=== PATIENT | female | born 1990 | race Caucasian/White ===

== ENCOUNTER 2018-03-03 14:00 | Day surgery (SDC) | payer SELFPAY ==
[2018-03-03] VITALS (9 sets, daily range): BP systolic 113–149; BP diastolic 68–91; PULSE 63–104; RESP 14–18; TEMP 36.6–37.1; O2SAT 98–100; BMI 25.5; BMI 25.6
--- NOTE | 2018-03-03 14:41 | CT_ITS ---
STUDY: CT ABDOMEN AND PELVIS WITHOUT CONTRAST REASON FOR EXAM: Female, 27 years old. Right lower quadrant pain. IUD. RADIATION DOSAGE (If Supplied By Facility): CTDIvol = ( 11.80 ) mGy, DLP = ( 579.02 ) mGycm TECHNIQUE: Transaxial images were obtained from the dome of the diaphragm to the symphysis pubis without oral contrast, and without intravenous contrast. Sagittal and coronal images were reconstructed. Individualized dose optimization techniques were used for this CT. COMPARISON: None. FINDINGS: The visualized lung bases are unremarkable. The visualized portions of the heart are within normal limits. Normal liver. Normal gallbladder and extrahepatic biliary system. Normal spleen. Normal pancreas. Normal bilateral adrenal glands. Normal right kidney. Normal left kidney. There is a small hiatal hernia. Normal small intestine. Moderate amount of fecal material is seen in the colon. There is a tubular, thick-walled appendix (>7mm), consistent with acute appendicitis. Dense material is seen within the appendix suggestive of appendicolith. Normal abdominal aorta. Normal inferior vena cava. Normal retroperitoneum. Normal urinary bladder. IUD is seen within the endometrium. Normal abdominal wall. Normal osseous structures. CT/Abdomen/Pelvis without Cont IMPRESSION: Findings suggestive of a noncomplicated acute appendicitis with appendicoliths within the appendix. Electronically Signed: Malachi Tanner MD at 15:47 EST Tel [phone], Service support ,
[2018-03-03 15:15] LABS: Absolute Lymphocyte Count 1.35 X10^3/ul (0.83-4.51); Absolute Neutrophil Count 2.1 X10^3/uL (2.0-7.7); Basophil# 0.01 X10^3/uL; Basophil% 0.3 % (0-1); Eosinophil# 0.03 X10^3/uL; Eosinophils% 0.8 % (0-5); Hematocrit 39.9 % (37-47); Hemoglobin 13.1 g/dl (12.0-15.0); Lymphocyte # 1.35 X10^3/ul (4.0); Lymphocyte % 35.9 % (19-41); Mean Corp Hgb Conc 32.8 g/gl (32-36); Mean Corpuscular Hgb 28.1 pg (27.0-32.0); Mean Corpuscular Volume 85.6 fL (81-99); Mean Platelet Vol. 10.8 fl (6.2-12.0); Monocyte# 0.24 X10^3/uL; Monocyte% 6.4 % (0-10); Neutrophil # 2.12 X10^3/uL (2.7-7.7); Neutrophil % 56.3 % (47-70); Platelet Count 123 K/mm3 (150-450); RBC Distribution Width CV 13.2 % (11.6-14.6); RBC Distribution Width SD 40.6 fl (35.1-43.9); Red Blood Count 4.66 M/mm3 (4.2-5.4); White Blood Count 3.8 K/mm3 (4.4-11.0)
[2018-03-03 15:16] LABS: POSITIVE COUNT NO; POSITIVE DIFFERENTIAL NO; POSITIVE MORPHOLOGY NO
[2018-03-03 15:26] LABS: Bacteria 0 SEEN /hpf (None Seen); Mucous, Urine 0 SEEN /hpf (<or=2+); Red Blood Cells-Urine 0 SEEN /hpf (0-5)
[2018-03-03 15:30] LABS: Color, Urine Yellow (Yellow); Glucose, Dipstick Normal (Normal); Ketone-Dipstick Negative (Negative); Leukocyte Esterase-Dipstick 25 /ul (Negative); Nitrite-Dipstick Negative (Negative); Occult Blood-Urine Negative /ul (Negative); Protein-Dipstick Negative (Negative); Specific Gravity, Urine 1.015 (1.002-1.030); Urine Bilirubin Dipstick Negative (Negative); Urine Clarity Clear (Clear); Urine Urobilinogen 1 mg/dl (Normal); Urine pH 6.5 (5.0 - 8.0)
[2018-03-03 15:35] LABS: AST(SGOT) 13 U/L (15-37); Alanine Aminotransfer ALT/SGPT 18 U/L (13-56); Alkaline Phosphatase 52 U/L (45-117); Anion Gap 5 (5-15); BUN 9 mg/dL (7-18); BUN/Creat Ratio 15.1 RATIO (10-20); Calcium,Total 8.9 mg/dL (8.5-10.1); Chloride 105 mmol/L (98-107); EST Glomerular Filtration Rate 126 mL/min (>60); Est Glom Filt Rate - Afr Amer 153 mL/min (>60); Estimated Creatinine Clearance 134.54 ml/min; Glucose 98 mg/dL (74-106); Lipase 86 U/L (73-393); Sodium Level 137 mmol/L (136-145)
[2018-03-03 15:36] LABS: Internal QC Validated? YES +Cl - CLEAR BKGD; Pregnancy, Urine Negative Negative
[2018-03-03 15:43] LABS: Squamous Epithelial Cells - UA 0-5 SEEN /hpf (5-10); White Blood Cells 0-5 SEEN /hpf (0-5)
--- NOTE | 2018-03-03 16:11 | ED.DCSUM_ITS ---
- ER Visit Summary Date of Service: 03/03/18 Chief Complaint: Abdominal pain History of Present Illness: The patient is a 27 F with right lower quadrant abdominal pain that has started about 3 days ago and is now radiating to her right flank. No other GI symptoms. No symptoms. She has had some vaginal spotting but no discharge. No fevers. Physical Examination: Afebrile and vital signs unremarkable. Alert and oriented. No acute distress. Heart regular. Lungs clear. Abdomen tender in the right lower quadrant. No guarding or rebound. Skin appears normal. Test Results: White count 3.8 and platelets 123. CMP and lipase unremarkable. test negative. Urinalysis unremarkable. CT showed acute appendicitis based on the thickened appendix as well as an appendicolith. Emergency Department Course and Treatment: Patient declined pain meds. She was treated with Zosyn. Workup showed appendicitis. Dr. Sexton was on-call and contacted and will evaluate. Patient has been n.p.o. since 1:30 PM today. Started on Zosyn. Treatment Plan: As above Disposition: Admission to the OR Impression: 1. Acute appendicitis This note was generated with [employer] dictation software. It may contain incorrect words, spelling, and punctuation that were not noted in review of the chart prior to signing ED Disposition - Plan for ED Patient: Chief Complaint: Abd Pain Referrals: Care Physician,No Primary [Primary Care Provider] -
--- NOTE | 2018-03-03 16:26 | ED.RN ---
Called nursing report to SHARMILA Su in [facility]. Denies questions. States ready for patient and that OR/AC will prep patient and give antibiotic. Pharmacy called and told to send antibiotic to OR when ready. Pt transferred to AC with ED RN.
--- NOTE | 2018-03-03 17:33 | CON.PCM_ITS ---
Problem List (1) Acute appendicitis Status: Acute Reason for Consult Date of Consultation: 03/03/18 History of Present Illness: The patient is a 27 F with right lower quadrant abdominal pain that has started about 3 days ago and is now radiating to her right flank. No other GI symptoms. No symptoms. She has had some vaginal spotting but no discharge. No fevers CT scan was done. It showed appendicolith and findings suggestive of acute appendicitis. Past Medical History Allergies No Known Allergies Allergy (Verified 03/03/18 14:05) Home Medications: Ambulatory Orders Medication Instructions Recorded Buprenorphine HCl/Naloxone HCl 0.25 tab PO DAILY 03/03/18 [Buprenorphin-Naloxon 8-2 mg Sl] Buprenorphine HCl/Naloxone HCl 0.5 tab PO DAILY 03/03/18 [Buprenorphin-Naloxon 8-2 mg Sl] Surgical History: no surgical history Smoking Status: Never smoker - *Family History Maternal History Items: - - all 4 of grandparents have diabetes. Mother had polyps Review of Systems Constitutional: Reports: Chills. Denies: Fever HEENT: Denies: Dysphasia, Ear Pain, Eye Pain, Head Aches, Hearing Changes, Sore Throat Cardiovascular: Denies: Chest Pain, Chest Pressure, Chest Tightness, Palpitations Respiratory: Denies: Cough, Hemoptysis, Shortness of breath at rest, Shortness of breath upon exertion, Wheezing Gastrointestinal: Reports: Abdominal Pain Musculoskeletal: Reports: Back Pain Patient Problems: Active and Suspected Problems Acute appendicitis (Acute) - Physical Exam General: Alert, Oriented x3 Lungs: Clear to auscultation Cardiovascular: Regular rate, Regular Rhythm, No murmurs Abdomen: Soft, Tender - No regard no peritoneal signs Vital Signs Temp Pulse Resp BP Pulse Ox 98.4 F 97 14 139/86 H 99 03/03/18 15:08 03/03/18 16:29 03/03/18 16:29 03/03/18 16:29 03/03/18 16:29 Oxygen Delivery Method Room Air Weight: 163 lb 5.8 oz Body Mass Index (BMI) 25.5 Laboratory Tests Past 24 Hrs 03/03/18 03/03/18 03/03/18 14:20 14:20 15:00 WBC 3.8 L RBC 4.66 Hgb 13.1 Hct 39.9 MCV 85.6 MCH 28.1 MCHC 32.8 RDW 13.2 RDW Differential 40.6 Plt Count 123 L MPV 10.8 Immature Gran % (Auto) 0.300 Neut % (Auto) 56.3 Lymph % (Auto) 35.9 [place] % (Auto) 6.4 Eos % (Auto) 0.8 Baso % (Auto) 0.3 Absolute Neuts (auto) 2.1 Absolute Lymphs (auto) 1.35 Total Counted Not Reportable Sodium Potassium Chloride Carbon Dioxide Anion Gap BUN Creatinine Estim Creat Clear Calc Est GFR (MDRD) Af Amer Est GFR (MDRD) Non-Af BUN/Creatinine Ratio Glucose Calcium Total Bilirubin AST ALT Alkaline Phosphatase Total Protein Albumin Globulin Albumin/Globulin Ratio Lipase Urine Color Yellow Urine Clarity Clear Urine pH 6.5 Ur Specific [place] 1.015 Urine Protein Negative Urine Glucose (UA) Normal Urine Ketones Negative Urine Occult Blood Negative Urine Nitrite Negative Urine Bilirubin Negative Urine Urobilinogen 1 H Ur Leukocyte Esterase 25 H Urine RBC 0 SEEN Urine WBC 0-5 SEEN Ur Squamous Epith Cells 0-5 SEEN Urine Bacteria 0 SEEN Urine Mucus 0 SEEN Urine Test Negative 03/03/18 15:00 WBC RBC Hgb Hct MCV MCH MCHC RDW RDW Differential Plt Count MPV Immature Gran % (Auto) Neut % (Auto) Lymph % (Auto) [place] % (Auto) Eos % (Auto) Baso % (Auto) Absolute Neuts (auto) Absolute Lymphs (auto) Total Counted Sodium 137 Potassium 4.0 Chloride 105 Carbon Dioxide 27.0 Anion Gap 5 BUN 9 Creatinine 0.60 Estim Creat Clear Calc 134.54 Est GFR (MDRD) Af Amer 153 Est GFR (MDRD) Non-Af 126 BUN/Creatinine Ratio 15.1 Glucose 98 Calcium 8.9 Total Bilirubin 0.20 AST 13 L ALT 18 Alkaline Phosphatase 52 Total Protein 8.0 Albumin 4.0 Globulin 4.0 Albumin/Globulin Ratio 1.0 Lipase 86 Urine Color Urine Clarity Urine pH Ur Specific [place] Urine Protein Urine Glucose (UA) Urine Ketones Urine Occult Blood Urine Nitrite Urine Bilirubin Urine Urobilinogen Ur Leukocyte Esterase Urine RBC Urine WBC Ur Squamous Epith Cells Urine Bacteria Urine Mucus Urine Test Assessment/Plan All Active Problems Acute appendicitis (Acute) Acute hepatitis (Acute) Elevated transaminase level (Acute) My plan is to perform a laparoscopic appendectomy on the patient risk benefits have been reviewed with the patient all questions asked by the patient and she agrees to proceed. Risks include bleeding infection delayed abscesses possible injury to surrounding structures blood clots heart attacks pneumonias strokes up to and including .
[2018-03-03] MEDS: Bupivacaine Mpf 0.5% 30 ML VIAL (18:28)
--- NOTE | 2018-03-03 18:45 | APP_PTH ---
PATIENT: ANDER TUBBS LOC: [facility] [place] U#:[id number] AGE/SX: 27/F ROOM: RE03/03/[address]: Dr. Jeremiah Sexton MD : [id number] BED: DIS: 03/04/2018 SPEC #: [id number] RECD: 03/04/18 07:03 STATUS: CARLA RESharif #: [id number] JOS: 03/03/18 18:[address]: Jeremiah Sexton DEPT: SURGICAL PATHOLOGY RECD BY: Brennon Fenton ENTERED: 03/04/18 08:41 SP TYPE: APPENDIX OT DR: No Primary Care Phys Tissues: Appendix, NOS Procedures: Surgery Specimen Level III HEADER OPERATION: Laparoscopic appendectomy PRE-OP DIAGNOSIS: Acute appendicitis TISSUE SUBMITTED: Appendix MICROSCOPIC DIAGNOSIS Appendix, appendectomy: Fecal impaction and early acute appendicitis. AM:nena 03/05/18 MICROSCOPIC DESCRIPTION Slides are reviewed. GROSS DESCRIPTION Received is one container labeled with the patient's name and designated appendix. The specimen consists of a vermiform appendix measuring 11.5 cm in length and 1 cm in greatest diameter. No gross perforations are evident. Serial sections reveal a patent lumen with dense fecal material. Care Administrative Tech sections are submitted in three cassettes. / AM:nena 03/04/18 TC:2 CPT: [id number]
--- NOTE | 2018-03-03 18:51 | PCM.OPRPT ---
Problem List (1) Acute appendicitis Status: Acute Qualifiers: Acute appendicitis type: with localized peritonitis Appendicitis gangrene presence: without gangrene Appendicitis perforation presence: without perforation Appendicitis abscess presence: without abscess Qualified Code(s): K35.30 - Acute appendicitis with localized peritonitis, without perforation or gangrene Report of Operation Date of Procedure: 03/03/18 Pre-Operative Diagnosis: Acute appendicitis Post-Operative Diagnosis: Same Surgery/Procedure Performed:: Laparoscopic appendectomy Type of Anesthesia:: General Anesthesiologist: Kiana Monroe Estimated Blood Loss (mL): , 25 cc Fluids Replaced: 550 cc lr Description of Procedure: Patient was brought into the operating room. Placed in the supine position. Under excellent general trach intubation the abdomen was sterilely prepped draped in usual fashion. Local was injected in for umbilically. Dissection was carried down to the fascia. The fascia was grasped with a [place]. Varies needle was placed inside the abdomen. Abdomen was insufflated to 15 torr. A 10/12 trocar was placed without difficulty. A suprapubic #5 trocar was placed left lower quadrant #5 trocar was placed both of these under direct visualization and no injury to underlying structures patient was placed in the headdown and rotated to the left dissected the appendix identified acute appendicitis took the mesoappendix down with the Enseal had excellent hemostasis transected the appendix with a 45 linear cutter placed in a specimen bag delivered through the umbilical port. Reinflated the abdomen inspected my base good hemostasis was noted looked into the pelvis saw a right ovarian ruptured cyst and a left ovary. No signs of pus in the pelvis. Inspected the right upper quadrant good hemostasis and no signs of any bleeding or pus. Remove the trochars under direct visualization. Close the fascia the umbilical port with [id number] stitch of 0 Vicryl skin incisions were closed with septicum stitches of 4-0 Monocryl Steri-Strips are applied sterile dressings were applied and the patient tolerated the procedure well. - Admit VTE Documentation VTE Present on Admission: No VTE Mechan Device Prophylaxis: SCD's VTE Pharm Prophylaxis ordered?: No Reason prophylaxis not ordered:: Treatment Not Indicated
[2018-03-03] MEDS: Lactated Ringers 1,000 ML 75 ML IV (22:22)
[2018-03-03] MEDS: Ketorolac 15 MG/ML Vial IV (22:22)
[2018-03-03] MEDS: BUPRENORPHINE HCL/NALOXONE HCL 1 EACH TAB.SUBL 0.25 EACH SL (22:51)
[2018-03-04 00:02] VITALS: BP 101/61; PULSE 66; RESP 16; TEMP 36.8; O2SAT 98
[2018-03-04 04:07] VITALS: BP 103/63; PULSE 73; RESP 18; TEMP 36.8; O2SAT 99
[2018-03-04] MEDS: Ketorolac 15 MG/ML Vial IV (05:15)
[2018-03-04] MEDS: BUPRENORPHINE HCL/NALOXONE HCL 1 EACH TAB.SUBL 0.5 EACH SL (05:36)
--- NOTE | 2018-03-04 07:23 | DCINST_ITS ---
Discharge Diet: Light diet - advance as tolerated Discharge Activity: May Not Drive - for 5 days or while taking narcotic pain meds. May shower in (days): 1 Call your doctor if your incision/area has: Continuous Slow Oozing, Sudden Increased Bleeding, Increased Pain/ Swelling, Increased Redness, Foul Smelling Discharge Call your doctor if you observe: Fever of 101 or Higher Suture Line Care: Avoid Pulling/Pushing, Avoid Pinching/Bending Remove Dressing in (days):: 2 - Leave steri-strips intact for 1 week Cleanse incision/area with: Soap & Water Additional Dressing/Incision Instructions:: Keep dressing clean and dry. Change or remove dressing in 2 days. Leave steri strips for 1 week. May protect with a gauze bandaid. Medications to take at Discharge Buprenorphine HCl/Naloxone HCl [Buprenorphin-Naloxon 8-2 mg Sl] 0.25 tab PO 1600 03/03/18 Buprenorphine HCl/Naloxone HCl [Buprenorphin-Naloxon 8-2 mg Sl] 0.5 tab PO DAILY 03/03/18 Allergies/Adverse Reactions: Allergies No Known Allergies Allergy (Verified 03/03/18 14:05) Primary Care Physician: Care Physician,No Primary [Primary Care Provider] - Test Results: Test results from this visit will be discussed in further detail at your follow- up appointment, if applicable. Please Follow Up With: Annabelle Barrientos PA-C - [phone] When: 10 days
--- NOTE | 2018-03-04 07:23 | PCM.PN.SRG ---
Patient Problems: Active and Suspected Problems Acute appendicitis (Acute) Subjective: Patient evaluated resting comfortably in bed. She notes minimal amount of incisional discomfort. She denies nausea, vomiting, fever. She is urinating well. She is tolerating a diet. - Physical Exam General: Alert, Oriented x3, Cooperative Abdomen: Soft, Hypoactive Bowel Sounds, Distended - slightly, Tender - mild generalized, - - Incisions c/d/i. No erythema or infection noted Vital Signs Temp Pulse Resp BP Pulse Ox 98.2 F 73 18 103/63 99 03/04/18 04:07 03/04/18 04:07 03/04/18 04:07 03/04/18 04:07 03/04/18 04:07 Oxygen Delivery Method Room Air Weight: 163 lb 5.8 oz Body Mass Index (BMI) 25.5 Intake and Output for Last 24 Hours 03/02/18 03/03/18 03/04/18 23:59 23:59 23:59 Intake Total 800 / 800 1206 / 1206 Output Total 600 / 600 Balance 800 / 800 606 / 606 Laboratory Tests Past 24 Hrs 03/03/18 03/03/18 03/03/18 14:20 14:20 15:00 WBC 3.8 L RBC 4.66 Hgb 13.1 Hct 39.9 MCV 85.6 MCH 28.1 MCHC 32.8 RDW 13.2 RDW Differential 40.6 Plt Count 123 L MPV 10.8 Immature Gran % (Auto) 0.300 Neut % (Auto) 56.3 Lymph % (Auto) 35.9 [place] % (Auto) 6.4 Eos % (Auto) 0.8 Baso % (Auto) 0.3 Absolute Neuts (auto) 2.1 Absolute Lymphs (auto) 1.35 Total Counted Not Reportable Sodium Potassium Chloride Carbon Dioxide Anion Gap BUN Creatinine Estim Creat Clear Calc Est GFR (MDRD) Af Amer Est GFR (MDRD) Non-Af BUN/Creatinine Ratio Glucose Calcium Total Bilirubin AST ALT Alkaline Phosphatase Total Protein Albumin Globulin Albumin/Globulin Ratio Lipase Urine Color Yellow Urine Clarity Clear Urine pH 6.5 Ur Specific [place] 1.015 Urine Protein Negative Urine Glucose (UA) Normal Urine Ketones Negative Urine Occult Blood Negative Urine Nitrite Negative Urine Bilirubin Negative Urine Urobilinogen 1 H Ur Leukocyte Esterase 25 H Urine RBC 0 SEEN Urine WBC 0-5 SEEN Ur Squamous Epith Cells 0-5 SEEN Urine Bacteria 0 SEEN Urine Mucus 0 SEEN Urine Test Negative 03/03/18 15:00 WBC RBC Hgb Hct MCV MCH MCHC RDW RDW Differential Plt Count MPV Immature Gran % (Auto) Neut % (Auto) Lymph % (Auto) [place] % (Auto) Eos % (Auto) Baso % (Auto) Absolute Neuts (auto) Absolute Lymphs (auto) Total Counted Sodium 137 Potassium 4.0 Chloride 105 Carbon Dioxide 27.0 Anion Gap 5 BUN 9 Creatinine 0.60 Estim Creat Clear Calc 134.54 Est GFR (MDRD) Af Amer 153 Est GFR (MDRD) Non-Af 126 BUN/Creatinine Ratio 15.1 Glucose 98 Calcium 8.9 Total Bilirubin 0.20 AST 13 L ALT 18 Alkaline Phosphatase 52 Total Protein 8.0 Albumin 4.0 Globulin 4.0 Albumin/Globulin Ratio 1.0 Lipase 86 Urine Color Urine Clarity Urine pH Ur Specific [place] Urine Protein Urine Glucose (UA) Urine Ketones Urine Occult Blood Urine Nitrite Urine Bilirubin Urine Urobilinogen Ur Leukocyte Esterase Urine RBC Urine WBC Ur Squamous Epith Cells Urine Bacteria Urine Mucus Urine Test Medical Necessity - Tobacco Use Smoking Status: Current every day smoker Tobacco Use: Cigarettes Assessment/Plan All Active Problems Acute appendicitis (Acute) Acute hepatitis (Acute) Elevated transaminase level (Acute) I am following this patient in conjunction with Dr. Sexton S/p laparoscopic appendectomy Making excellent progress Ready for discharge Code Visit Inpatient E&M: 79048 Subs Hosp L1 - POST-OP
[2018-03-04 10:00] VITALS: BP 101/57; PULSE 53; RESP 16; TEMP 36.8; O2SAT 98
[2018-03-04] MEDS: Ibuprofen 400 MG Tablet 800 MG PO (10:13)
--- NOTE | 2018-03-04 10:22 | CASEMGMT ---
Social Work Note Pt is listed as self-pay. SW spoke with PFS briefly in [facility]. Per PFS pt was provided HCAP application, will be calling [employer] to complete Medicaid application and denied wanting to complete Medicaid application at this time. BJORN met with pt. SW introduced self and role at [facility]. Pt is alert and orientated. Pt confirms that she was provided HCAP application, will be calling [employer] in regards to Medicaid and doesn't want to complete Medicaid Application at this time. BJORN provided pt with additional resources including [employer], [employer], Prescription assistance programs and [facility] information. SW informed pt to ask for SW or PFS if she has additional concerns. Pt states understanding. Luda Dumont VOCATIONAL REHABILITATION SUPERVISOR, PROFESSOR OF SOCIOLOGY
[2018-03-04 12:31] VITALS: BP 111/65; PULSE 57; RESP 18; TEMP 36.9; O2SAT 100
--- NOTE | 2018-03-04 12:33 | NURSING ---
pt home medication given back with Brennon Valdez RN verified.
--- OUTSIDE RECORDS SUMMARY | 2018-05-05 21:00 | XMS RPT_ITS ---
:1990 Author Organization OHIP Care Team Providers Name Role Phone Primay Care Physicia, No Primary Care Unavailable Jeremiah Sexton Attending Unavailable Jeremiah Sexton Referring Unavailable Annabelle Barrientos PA-C Attending Unavailable Jeremiah Sexton Referring Unavailable Primay Care Physicia, No Primary Care Unavailable Jeremiah Sexton Consulting Unavailable PROBLEMS PROBLEMS No Problem Records FoundPROCEDURES PROCEDURES No Procedure Records FoundRESULTS RESULTS DISCHARGE INSTRUCTION Observed: 03/04/2018 Status: F Source: [place] 7:23 AM [facility] REPOSITORY [facility] Medical Records Department [address] [place] [address] Instructions for Home/Discharge Instructions 03/04/18 0721 MR#: [id number] Acct: [id number] Name: ANDER TUBBS Rep #: [id number] : 1990 27 From: Annabelle Barrientos PA-C PCP: Care Physician, No Primary Status: REG [facility] Discharge Diet: Light diet - advance as tolerated Discharge Activity: May Not Drive - for 5 days or while taking narcotic pain meds. May shower in (days): 1 Call your doctor if your incision/area has: Continuous Slow Oozing, Sudden Increased Bleeding, Increased Pain/ Swelling, Increased Redness, Foul Smelling Discharge Call your doctor if you observe: Fever of 101 or Higher Suture Line Care: Avoid Pulling/Pushing, Avoid Pinching/Bending Remove Dressing in (days):: 2 - Leave steri-strips intact for 1 week Cleanse incision/area with: Soap AND Water Additional Dressing/Incision Instructions:: Keep dressing clean and dry. Change or remove dressing in 2 days. Leave steri strips for 1 week. May protect with a gauze bandaid. Medications to take at Discharge Buprenorphine HCl/Naloxone HCl [Buprenorphin-Naloxon 8-2 mg Sl] 0.25 tab PO 1600 03/03/18 Buprenorphine HCl/Naloxone HCl [Buprenorphin-Naloxon 8-2 mg Sl] 0.5 tab PO DAILY 03/03/18 Allergies/Adverse Reactions: Allergies No Known Allergies Allergy (Verified 03/03/18 14:05) Primary Care Physician: Care Physician,No Primary [Primary Care Provider] - Test Results: Test results from this visit will be discussed in further detail at your follow-up appointment, if applicable. Please Follow Up With: Annabelle Barrientos PA-C - [phone] When: 10 days 03/04/18722 <Electronically signed by Annabelle Barrientos PA-C> Date Annabelle Barrientos PA-C CC: No Primary Care Physician Signed APPENDIX Observed: 03/03/2018 Status: F Source: [place] 6:45 PM [facility] REPOSITORY Patient: ANDER TUBBS : 1990 () Acct Num: [id number] Phys: Jeremiah Sexton MD Unit Num: [id number] Loc: [facility] Specimen: [id number] Received: 03/04/18702 Spec Type: APPENDIX TISSUES 1 TISSUES: Appendix, NOS GROSS DESCRIPTION Received is one container labeled with the patient's name and designated appendix. The specimen consists of a vermiform appendix measuring 11.5 cm in length and 1 cm in greatest diameter. No gross perforations are evident. Serial sections reveal a patent lumen with dense fecal material. Shearing Shed Worker sections are submitted in three cassettes. / AM:nena 03/04/18 TC:2 CPT: [id number] HEADER OPERATION: Laparoscopic appendectomy PRE-OP DIAGNOSIS: Acute appendicitis TISSUE SUBMITTED: Appendix MICROSCOPIC DESCRIPTION Slides are reviewed. MICROSCOPIC DIAGNOSIS Appendix, appendectomy: Fecal impaction and early acute appendicitis. AM:nena 03/05/18 Signed Cezar Umaña DO 03/06/18 <signature on file> Performed By: #### PATRICIA #### [facility] [address] [place], [address] EMERGENCY DEPARTMENT Observed: 03/03/2018 Status: F Source: [place] SUMMARY 4:14 PM [facility] REPOSITORY [facility] Medical Records Department [address] [place] [address] Emergency Department Summary 03/03/18 1609 MR#: [id number] Acct: [id number] Name: ANDER TUBBS Rep #: [id number] : 1990 27 From: Jeremiah Ho MD PCP: Care Physician, No Primary Status: REG ER - ER Visit Summary Date of Service: 03/03/18 Chief Complaint: Abdominal pain History of Present Illness: The patient is a 27 F with right lower quadrant abdominal pain that has started about 3 days ago and is now radiating to her right flank. No other GI symptoms. No symptoms. She has had some vaginal spotting but no discharge. No fevers. Physical Examination: Afebrile and vital signs unremarkable. Alert and oriented. No acute distress. Heart regular. Lungs clear. Abdomen tender in the right lower quadrant. No guarding or rebound. Skin appears normal. Test Results: White count 3.8 and platelets 123. CMP and lipase unremarkable. test negative. Urinalysis unremarkable. CT showed acute appendicitis based on the thickened appendix as well as an appendicolith. Emergency Department Course and Treatment: Patient declined pain meds. She was treated with Zosyn. Workup showed appendicitis. Dr. Sexton was on-call and contacted and will evaluate. Patient has been n.p.o. since 1:30 PM today. Started on Zosyn. Treatment Plan: As above Disposition: Admission to the OR Impression: 1. Acute appendicitis This note was generated with [employer] dictation software. It may contain incorrect words, spelling, and punctuation that were not noted in review of the chart prior to signing ED Disposition - Plan for ED Patient: Chief Complaint: Abd Pain Referrals: Care Physician,No Primary [Primary Care Provider] - What to do if you have Problems For any increased pain, shortness of breath, bleeding, nausea or vomiting, chest pain, or any unexpected problems, contact your Primary Care Provider. Call [facility] ([phone]) or report to the closest Emergency Room. Call 911 if necessary. 03/03/18 1614 <Electronically signed by Jeremiah Ho MD> Date Jeremiah Ho MD Cosigner Signature (If Indicated): Date CC: No Primary Care Physician CBC W/DIFF, AUTOMATED Collected: 03/03/2018 Status: F Source: [place] 3:00 PM [facility] REPOSITORY TYPE CODE TESTS RESULT OUT OF RANGE REFERENCE UNITS LAB L100.1000 4.4-11.0 K/mm3 Low WBC 3.8 LAB L100.1200 4.2-5.4 M/mm3 Normal RBC 4.66 LAB L100.1300 12.0-15.0 g/dl Normal HGB 13.1 LAB L100.1400 37-47 % Normal HCT 39.9 LAB L100.1500 81-99 fL Normal MCV 85.6 LAB L100.1600 27.0-32.0 pg Normal MCH 28.1 LAB L100.1700 32-36 g/gl Normal MCHC 32.8 LAB L100.1810 11.6-14.6 % Normal RDW CV 13.2 LAB L100.1820 35.1-43.9 fl Normal RDW SD 40.6 LAB L100.1900 150-450 K/mm3 Low PLT 123 LAB L100.2000 6.2-12.0 fl Normal MPV 10.8 LAB L100.2100 47-70 % Normal NEUT% 56.3 LAB L100.2200 19-41 % Normal LY% 35.9 LAB L100.2300 0-10 % Normal MONO% 6.4 LAB L100.2400 0-5 % Normal EO% 0.8 LAB L100.2500 0-1 % Normal BASO% 0.3 LAB L100.2550 0.0-0.9 % Normal IM GRAN % 0.300 Result Comment: IG% - Immature Granulocytes (promyelocytes, myelocytes and metamyelocytes) > 1% indicates that a LEFT SHIFT is Present. LAB L100.2620 2.0-7.7 X10 3/uL Normal Absolute Neut 2.1 LAB L100.2720 0.83-4.51 X10 3/ul Normal Absolute Lymph 1.35 Performed By: #### L100.0100 #### [facility] [address] [place], [place], [id number] COMPREHENSIVE METABOLIC Collected: 03/03/2018 Status: F Source: [facility] 3:00 PM [facility] REPOSITORY TYPE CODE TESTS RESULT OUT OF RANGE REFERENCE UNITS LAB L501.0100 74-106 mg/dL Normal GLU 98 Result Comment: Please note revised GLUCOSE reference range effective 2017. LAB L501.1000 7-18 mg/dL Normal BUN 9 LAB L501.1100 0.55-1.02 mg/dL Normal CREAT,SERUM 0.60 Result Comment: The validity of the calculated GFR AND GFRAA in patients over 70 years has not been determined. Clinical correlation is essential. LAB L501.1110 >60 mL/min Normal EST GFR 126 Result Comment: Non- GFR Calc LAB L501.1115 >60 mL/min Normal EST GFR - AA 153 Result Comment: GFR Calc LAB L501.1255 ml/min Normal Estimated CRCL 134.54 LAB L501.1300 10-20 RATIO BUN/CRE Normal 15.1 LAB L501.1500 6.4-8. g/dL 2 T PROT Normal 8.0 LAB L501.1800 3.2-5. g/dL 0 ALB Normal 4.0 LAB L501.1950 2.2-4. g/dL 2 GLOB Normal 4.0 LAB L501.2000 0.9-2. RATIO 4 A/G Normal 1.0 LAB L501.2200 8.5-10 mg/dL .1 CA Normal 8.9 LAB L501.4100 15-37 U/L Low AST 13 LAB L501.4305 45-117 U/L ALK P Normal 52 LAB L501.4405 13-56 U/L ALT Normal 18 LAB L501.4600 0.20-1 mg/dL .00 T BILI Normal 0.20 LAB L501.5300 136-14 mmol/L 5 NA Normal 137 LAB L501.5600 3.5-5. mmol/L 1 K Normal 4.0 LAB L501.5900 98-107 mmol/L CL Normal 105 LAB L501.6100 21.0-3 mmol/L 2.0 CO2 Normal 27.0 LAB L501.6200 5-15 GAP Normal 5 Performed By: #### L500.4050, L501.2450 #### [facility] [address] [place], [address] LIPASE Collected: 03/03/2018 Status: F Source: [place] 3:00 PM [facility] REPOSITORY TYPE CODE TESTS RESULT OUT OF RANGE REFERENCE UNITS LAB L501.2450 73-393 U/L Normal LIPASE 86 Performed By: #### L500.4050, L501.2450 #### [facility] [address] [place], [address] ABDOMEN/PELVIS WITHOUT Observed: 03/03/2018 Status: F Source: [place] CONT 2:42 PM [facility] REPOSITORY [facility] Imaging Services [address] [place] [address] Abdomen/Pelvis without Cont MR#: [id number] Acct: [id number] Name: ANDER TUBBS Rep #: [id number] : 1990 F 27 From: Malachi Tanner MD PCP: Care Physician, No Primary Status: REG ER Study: Abdomen/Pelvis without Cont Date of Exam: 03/03/18 Exam# [id number] Ordering Dr: Jeremiah Ho MD STUDY: CT ABDOMEN AND PELVIS WITHOUT CONTRAST REASON FOR EXAM: Female, 27 years old. Right lower quadrant pain. IUD. RADIATION DOSAGE (If Supplied By Facility): CTDIvol = ( 11.80 ) mGy, DLP = ( 579.02 ) mGycm TECHNIQUE: Transaxial images were obtained from the dome of the diaphragm to the symphysis pubis without oral contrast, and without intravenous contrast. Sagittal and coronal images were reconstructed. Individualized dose optimization techniques were used for this CT. COMPARISON: None. FINDINGS: The visualized lung bases are unremarkable. The visualized portions of the heart are within normal limits. Normal liver. Normal gallbladder and extrahepatic biliary system. Normal spleen. Normal pancreas. Normal bilateral adrenal glands. Normal right kidney. Normal left kidney. There is a small hiatal hernia. Normal small intestine. Moderate amount of fecal material is seen in the colon. There is a tubular, thick-walled appendix (>7mm), consistent with acute appendicitis. Dense material is seen within the appendix suggestive of appendicolith. Normal abdominal aorta. Normal inferior vena cava. Normal retroperitoneum. Normal urinary bladder. IUD is seen within the endometrium. Normal abdominal wall. Normal osseous structures. CT/Abdomen/Pelvis without Cont IMPRESSION: Findings suggestive of a noncomplicated acute appendicitis with appendicoliths within the appendix. Electronically Signed: Malachi Tanner MD at 15:47 EST Tel [phone], Service support , CC: No Primary Care Physician; Jeremiah Ho MD Cmo & President: Signed URINALYSIS, COMPLETE Collected: 03/03/2018 Status: F Source: [place] 2:20 PM [facility] REPOSITORY Order Comment: How was Urine Obtained? CLEAN CATCH TYPE CODE TESTS RESULT OUT OF RANGE REFERENCE UNITS LAB L400.3000 Yellow COLOR Normal Yellow LAB L400.3050 Clear Normal CLARITY Clear LAB L400.3200 Normal mg/dl Normal GLUCOSE, UR Normal LAB L400.3300 Negative mg/dL Normal BILIRUBIN URINE Negative LAB L400.3400 Negative mg/dl Normal KETONE UR Negative LAB L400.3465 1.002-1.030 Normal SP.GR. DIPSTX 1.015 LAB L400.3550 5.0 - 8.0 pH UR Normal 6.5 LAB L400.3600 Negative mg/dl PROT Normal DIPSTX Negative LAB L400.3700 Normal mg/dl High 1 UROBILI LAB L400.3750 Negative Normal NITRITE UR Negative LAB L400.3780 Negative /ul Normal OCCULT BLOOD-UR Negative LAB L400.3800 Negative /ul High LEUK 25 ESTERASE LAB L400.4050 0-5 /hpf WBC Normal 0-5 SEEN LAB L400.4100 0-5 /hpf 0 Normal RBC-UA SEEN LAB L400.4150 5-10 /hpf SQUAM Normal EPI 0-5 SEEN LAB L400.4300 None Seen /hpf 0 Normal BACTERIA SEEN LAB L400.4350 <or=2+ /hpf 0 Normal MUCUS, URINE SEEN Performed By: #### L400.0001 #### [facility] [address] [place], [place], [address] ,URINE Collected: 03/03/2018 Status: F Source: [place] 2:20 PM [facility] REPOSITORY TYPE CODE TESTS RESULT OUT OF REFERENCE UNITS RANGE LAB L400.8000 Negative Normal HCGUQUAL Negative Result Comment: Very dilute urine specimens, as indicated by a low specific gravity, may not contain sales representative aircraft levels of hCG. If is still suspected, a first morning urine specimen should be collected 48 hours later and tested. Performed By: #### L400.7600 #### [facility] [address] [place], [place], [address] ALLERGIES ALLERGIES DATE TYPE / CODE NAME / CODE REACTION SEVERITY SOURCE 03/03/2018 Drug No Known Unknown [facility] Allergy/4160 Allergies/F00 Hospital 44750(SNOMED 9272828(RXNOR Repository CT) M) ENCOUNTERS ENCOUNTERS ADMIT/DISCHARGE ACCOUNT ADMITTING ENCOUNTER LOCATION SOURCE NUMBER CLASS 03/04/2018 [id number] Ambulatory BMSBuilding:B [place] 4 MS.CF.A [facility] Repository 03/03/2018/ [id number] Ambulatory [place] 9 2 [facility] ing:SDCRoom: Repository MS317 PAYERS PAYERS ENCOUNTER GUARANTOR PAYER SUBSCRIBER SOURCE 03/04/2018 MOHINI Valdes Primary [place] [id number] Insurance:SELF PAY [place], [place] Number: Effective Repository [phone]: [phone] Date:2018-03-04 [phone] (HP) 03/03/2018 MOHINI Valdes [facility]SELF PAY [place] Number: Effective Repository [phone]: [phone] Date:2018-03-03 [phone] ()
--- OUTSIDE RECORDS SUMMARY | 2018-05-05 22:31 | XMS RPT_ITS ---
[...] 03/04/2018 Status: F Source: [place] 7:23 AM [facility] REPOSITORY [facility] Medical Records Department [address] [place] [address] Instructions for Home/Discharge Instructions 03/04/18 0721 MR#: [id number] Acct: [id number] Name: ANDER TUBBS Rep #: [id number] : 1990 27 From: Annabelle Barrientos PA-C PCP: Care Physician, No Primary Status: REG [facility] Discharge Diet: Light diet - advance as [...] Follow Up With: Annabelle Barrientos PA-C - [phone] When: 10 days 03/04/18722 <Electronically signed by Annabelle Barrientos PA-C> Date Annabelle Barrientos PA-C CC: No Primary Care Physician Signed APPENDIX Observed: 03/03/2018 Status: F Source: [place] 6:45 PM [facility] REPOSITORY Patient: ANDER TUBBS : 1990 () Acct Num: [id number] Phys: Jeremiah Sexton MD Unit Num: [id number] Loc: [facility] Specimen: [id number] Received: 03/04/18702 Spec Type: APPENDIX TISSUES 1 TISSUES: Appendix, NOS GROSS DESCRIPTION Received is one container labeled with the patient's name and designated appendix. The specimen consists of a vermiform appendix measuring 11.5 cm in length and 1 cm in greatest diameter. No gross perforations are evident. Serial sections reveal a patent lumen with dense fecal material. Photography Sales Associate sections are submitted in three cassettes. / AM:nena 03/04/18 TC:2 CPT: [id number] HEADER OPERATION: Laparoscopic appendectomy PRE-OP DIAGNOSIS: Acute appendicitis TISSUE SUBMITTED: Appendix MICROSCOPIC DESCRIPTION Slides are reviewed. MICROSCOPIC DIAGNOSIS Appendix, appendectomy: Fecal impaction and early acute appendicitis. AM:nena 03/05/18 Signed Cezar Umaña DO 03/06/18 <signature on file> Performed By: #### PATRICIA #### [facility] [address] [place], [address] EMERGENCY DEPARTMENT Observed: 03/03/2018 Status: F Source: [place] SUMMARY 4:14 PM [facility] REPOSITORY [facility] Medical Records Department [address] [place] [address] Emergency Department Summary 03/03/18 1609 MR#: [id number] Acct: [id number] Name: ANDER TUBBS Rep #: [id number] : 1990 27 From: Jeremiah Ho MD [...] Acute appendicitis This note was generated with [employer] dictation software. It may contain incorrect words, [...] your Primary Care Provider. Call [facility] ([phone]) or report to the closest Emergency Room. Call 911 if necessary. 03/03/18 1614 <Electronically signed by Jeremiah Ho MD> Date Jeremiah Ho MD Cosigner Signature (If Indicated): Date CC: No Primary Care Physician CBC W/DIFF, AUTOMATED Collected: 03/03/2018 Status: F Source: [place] 3:00 PM [facility] REPOSITORY TYPE CODE TESTS RESULT OUT OF [...] Lymph 1.35 Performed By: #### L100.0100 #### [facility] [address] [place], [place], [id number] COMPREHENSIVE METABOLIC Collected: 03/03/2018 Status: F Source: [facility] 3:00 PM [facility] REPOSITORY TYPE CODE TESTS RESULT OUT OF [...] 5 Performed By: #### L500.4050, L501.2450 #### [facility] [address] [place], [address] LIPASE Collected: 03/03/2018 Status: F Source: [place] 3:00 PM [facility] REPOSITORY TYPE CODE TESTS RESULT OUT OF RANGE REFERENCE UNITS LAB L501.2450 73-393 U/L Normal LIPASE 86 Performed By: #### L500.4050, L501.2450 #### [facility] [address] [place], [address] ABDOMEN/PELVIS WITHOUT Observed: 03/03/2018 Status: F Source: [place] CONT 2:42 PM [facility] REPOSITORY [facility] Imaging Services [address] [place] [address] Abdomen/Pelvis without Cont MR#: [id number] Acct: [id number] Name: ANDER TUBBS Rep #: [id number] : 1990 F 27 From: Malachi Tanner MD PCP: Care Physician, No Primary Status: REG ER Study: Abdomen/Pelvis without Cont Date of Exam: 03/03/18 Exam# [id number] Ordering Dr: Jeremiah Ho MD STUDY: CT [...] Malachi Tanner MD at 15:47 EST Tel [phone], Service support , CC: No Primary Care Physician; Jeremiah Ho MD Decision Science Analyst: Signed URINALYSIS, COMPLETE Collected: 03/03/2018 Status: F Source: [place] 2:20 PM [facility] REPOSITORY Order Comment: How was Urine Obtained? [...] URINE SEEN Performed By: #### L400.0001 #### [facility] [address] [place], [place], [address] ,URINE Collected: 03/03/2018 Status: F Source: [place] 2:20 PM [facility] REPOSITORY TYPE CODE TESTS RESULT OUT OF REFERENCE UNITS RANGE LAB L400.8000 Negative Normal HCGUQUAL Negative Result Comment: Very dilute urine specimens, as indicated by a low specific gravity, may not contain customer retention representative levels of hCG. If is still suspected, a first morning urine specimen should be collected 48 hours later and tested. Performed By: #### L400.7600 #### [facility] [address] [facility] [place], [place], [address] ALLERGIES ALLERGIES DATE TYPE / CODE NAME / CODE REACTION SEVERITY SOURCE 03/03/2018 Drug No Known Unknown [facility] Allergy/4160 Allergies/F00 Hospital 42917(SNOMED 0845664(RXNOR Repository CT) M) ENCOUNTERS ENCOUNTERS ADMIT/DISCHARGE ACCOUNT ADMITTING ENCOUNTER LOCATION SOURCE NUMBER CLASS 03/04/2018 [id number] Ambulatory BMSBuilding:[place] 4 MS.CF.A [facility] Repository 03/03/2018/ [id number] Ambulatory [place] 9 2 [facility] ing:SDCRoom: Repository MS317 PAYERS PAYERS ENCOUNTER GUARANTOR PAYER SUBSCRIBER SOURCE 03/04/2018 MOHINI Valdes Primary NOT [place]K [id number] Insurance:SELF PAY [place], [place] Number: Effective Repository [phone]: [phone] Date:2018-03-04 [phone] (HP) 03/03/2018 MOHINI Valdes [facility] Insurance:SELF PAY [place] Number: Effective Repository [phone]: [phone] Date:2018-03-03 [phone] ()
== END 2018-03-04 12:35 | disposition home or self-care (01) ==
LOC: ED 16:22 → SDC 16:25 → AC 16:25 → SDC 17:08 → MS3 17:09
PROVIDERS: Emergency Provider Emergency Medicine; Referring Provider Surgery; Visit Provider Surgery
PROC: 0DTJ4ZZ Resection of Appendix, Percutaneous Endoscopic Approach (ICD-10-PCS; CPT 44970; principal; 2018-03-03 18:25)
DX: K35.30 Acute appendicitis with localized peritonitis, without perforation or gangrene (principal); K56.41 Fecal impaction; F17.210 Nicotine dependence, cigarettes, uncomplicated; F11.11 Opioid abuse, in remission
CPT/HCPCS: 44970; 74176; 80053; 81001; 81025; 83690; 85025; 88304; 99285; J7120; A4216; C1760; J2405

== ENCOUNTER 2018-08-29 19:10 | Emergency (ER) | payer MEDICAID, SELFPAY ==
[2018-08-29 19:11] VITALS: BP 136/8; PULSE 92; RESP 16; TEMP 36.8; O2SAT 100; BMI 24.0
[2018-08-29 19:44] LABS: Mucous, Urine 0 SEEN /hpf (<or=2+); Red Blood Cells-Urine 0 SEEN /hpf (0-5)
[2018-08-29 19:45] LABS: Color, Urine Yellow (Yellow); Glucose, Dipstick Normal (Normal); Ketone-Dipstick Negative (Negative); Leukocyte Esterase-Dipstick 25 /ul (Negative); Nitrite-Dipstick Negative (Negative); Occult Blood-Urine Negative /ul (Negative); Protein-Dipstick Negative (Negative); Urine Bilirubin Dipstick Negative (Negative); Urine Clarity Clear (Clear); Urine Urobilinogen Normal (Normal)
[2018-08-29 19:49] LABS: Internal QC Validated? YES +Cl - CLEAR BKGD; Pregnancy, Urine Negative Negative
[2018-08-29 19:51] LABS: Bacteria RARE /hpf (None Seen); Squamous Epithelial Cells - UA 0-5 SEEN /hpf (5-10); White Blood Cells 0-5 SEEN /hpf (0-5)
--- NOTE | 2018-08-29 20:14 | ED.VISSUMM ---
- ER Visit Summary Date of Service: 08/29/18 Chief Complaint: concerns History of Present Illness: The patient is a 27 F who states she has not had a period for the past 3 months. She is a G2, P2. She is seen Dr. Andrews in the past and had an appointment scheduled with him but had to cancel for insurance reasons. She states quite simply she does not have insurance. She states that now she has been having some light spotting for the past couple days. She states that she lost 10 to 15 pounds over the past several weeks due to stress. She states that she has had 2 home test have been negative. She has an IUD in place. She denies any pelvic pain. When asked if she has any vaginal discharge she states that no there is just a different smell. When asked to describe the smell she states she just off. She states that sometimes she has a yellow discharge sometimes it is clear sometimes white sometimes there is none. Currently we are on the none. She is on Suboxone but currently takes no other medications. Physical Examination: Afebrile vital signs stable Gen: Well-nourished well-developed Head: Normocephalic atraumatic Eyes: Perrl EOMI ENT: TMs clear no rhinorrhea moist mucous membranes Neck: Supple no lymphadenopathy no JVD nontender CVS: Regular rate rhythm no murmurs normal S1-S2 Respiratory: No distress clear to auscultation bilaterally chest nontender Abdomen: Soft nontender nondistended normal bowel sounds no masses Back: Nontender Extremity: Nontender no edema Skin: Normal color no rash Neuro: alert orientated ?3 CN II-XII intact normal strength sensation reflexes gait cerebellar Psych: Normal affect normal mood Test Results: Urinalysis, test, and GC and Chlamydia test were negative. Emergency Department Course and Treatment: Was encouraged to follow-up with gynecology. At this point I do not see an acute emergency. I do not believe the patient has PID. She has no pain. She has currently no vaginal discharge. Impression: 1. Amenorrhea This note was generated with [employer]ation software. It may contain incorrect words, spelling, and punctuation that were not noted in review of the chart prior to signing ED Disposition - Plan for ED Patient: Disposition: Home or Assisted Living Instructions: Amenorrhea Referrals: Odilon Andrews MD [STAFF PHYSICIAN] - As soon as possible
[2018-08-29 20:25] VITALS: BP 136/68; PULSE 79; RESP 18
[2018-08-29 21:18] LABS: Chlamydia Trachomatis by PCR Negative (Negative); Neisserai gonorrhoeae by PCR Negative (Negative); Probe Check PASS; Sample Adequacy Control PASS; Specimen Processing Control PASS
== END 2018-08-29 20:26 | disposition home or self-care (01) ==
PROVIDERS: Emergency Provider Emergency Medicine
DX: N91.2 Amenorrhea, unspecified (principal); Z97.5 Presence of (intrauterine) contraceptive device
CPT/HCPCS: 81001; 81025; 87491; 87591; 99282

== ENCOUNTER 2019-01-06 03:13 | Emergency (ER) | payer SELFPAY ==
[2019-01-06 03:14] VITALS: BP 134/92; PULSE 116; RESP 18; TEMP 36.9; O2SAT 99; BMI 22.1
--- NOTE | 2019-01-06 03:45 | ED.VIS.GEN ---
History of Present Illness Chief Complaint: Mental Health Narrative: Patient is a 28-year-old female who presents with anxiety. She reports increased anxiety over the past 6 weeks. She denies any specific trigger or exacerbating factors. She states she has episodes of palpitations with her anxiety. No chest pain or shortness of breath nausea or vomiting. She reports prior history of heroin abuse but currently denies any illicit drug use. She does admit to intermittent alcohol use. She denies recent medical illness such as fevers chest pain shortness of breath cough. She does report some diarrhea. She denies suicidal ideations. She denies homicidal ideations. She feels safe at home. She denies any visual or auditory hallucinations. The boyfriend's mother however reported that when she is in the room by herself she has heard her talking to herself. Past Medical History - Allergies and Home Meds Allergies/Adverse Reactions: Allergies No Known Allergies Allergy (Verified 09/30/18 14:42) Primary Care Physician: Care Physician,No Primary [Primary Care Provider] - Past Medical History: None Surgical History: no surgical history Smoking Status: Current every day smoker - Family History Maternal Family History: Reports: - - all 4 of grandparents have diabetes. Mother had polyps Review of Systems All systems negative except as indicated General: Denies: Fever Cardiovascular: Reports: Palpitations. Denies: Chest pain Respiratory: Denies: Dyspnea, Cough Gastrointestinal: Reports: Diarrhea. Denies: Nausea, Vomiting Musculoskeletal: Denies: Myalgias Skin: Denies: Rash Neurological: Denies: Headache Physical Exam Vital Signs/Narrative: Vital Signs Temp Pulse Resp BP Pulse Ox 01/06/19 03:14 98.5 F 116 H 18 134/92 H 99 Inital Vital Signs reviewed: Yes General: Well nourished, Well developed Head: Normocephalic, Atraumatic Eyes: EOMI ENT: Moist mucous membranes Neck: Supple Cardiovascular: Regular rate, Regular rhythm Respiratory: No distress, CTA bilaterally Abdomen: Soft Skin: Normal color Neurological: Alert, - - No focal or lateralizing neurological deficits, normal strength, normal sensation Psychological: - - Patient has a blunted affect but denies suicidal or homicidal ideations, she does not appear internally stimulated Diagnostic/Tx/Re-eval - Medical Decision Making Patient presents with anxiety. Although her boyfriend's mother reported that she has been talking to herself and her room by herself she does not appear acutely psychotic, she does not appear internally stimulated. She is not suicidal or homicidal. I do not feel she meets any criteria for involuntary hospitalization. She was given a dose of Vistaril here, a prescription for the same and also referred to the counseling center and was discharged home. ED Disposition - Plan for ED Patient: Disposition: Home or Assisted Living Diagnosis: Anxiety Instructions: Anxiety Reaction Prescriptions: hydrOXYzine pamoate capsule [Vistaril] 50 mg PO TID PRN PRN #30 cap PRN Reason: Anxiety Prescription Printed Referrals: Care Physician,No Primary [Primary Care Provider] -
--- NOTE | 2019-01-06 03:58 | ED.DEP ---
ED Disposition - Plan for ED Patient: Disposition: Home or Assisted Living Diagnosis: Anxiety Instructions: Anxiety Reaction Prescriptions: hydrOXYzine pamoate capsule [Vistaril] 50 mg PO TID PRN PRN #30 cap PRN Reason: Anxiety Prescription Printed Referrals: Care Physician,No Primary [Primary Care Provider] - Counseling,Center [GROUP OF PHYSICIANS] -
[2019-01-06] MEDS: hydrOXYzine PAM 25 MG Capsule PO (04:06)
[2019-01-06 06:11] VITALS: BP 126/72; PULSE 68; RESP 15; O2SAT 97
== END 2019-01-06 06:11 | disposition home or self-care (01) ==
LOC: ED 04:09
PROVIDERS: Emergency Provider Emergency Medicine
DX: F41.9 Anxiety disorder, unspecified (principal); F17.200 Nicotine dependence, unspecified, uncomplicated; Z72.89 Other problems related to lifestyle
CPT/HCPCS: 99282

== ENCOUNTER 2023-12-19 14:58 | Emergency (ER) | payer MEDICARE, MEDICAID, SELFPAY ==
[2023-12-19 14:58] VITALS: BP 138/94; PULSE 83; RESP 16; TEMP 36.6; O2SAT 100
[2023-12-19 15:35] VITALS: BMI 23.1
[2023-12-19 15:57] LABS: Mucous, Urine 0 SEEN /hpf (<or=2+); Red Blood Cells-Urine 0 SEEN /hpf (0-5); White Blood Cells 0 SEEN /hpf (0-5)
[2023-12-19 15:57] LABS: Absolute Lymphocyte Count 1.43 X10^3/uL (0.83-4.51); Absolute Neutrophil Count 5.6 X10^3/uL (2.0-7.7); Basophil# 0.02 X10^3/uL; Basophil% 0.3 % (0-1); Eosinophil# 0.04 X10^3/uL; Eosinophils% 0.5 % (0-5); Hematocrit 44.7 % (37-47); Hemoglobin 14.5 g/dL (12.0-15.0); Lymphocyte # 1.43 X10^3/ul (0.83-4.51); Lymphocyte % 18.7 % (19-41); Mean Corp Hgb Conc 32.4 g/dL (32-36); Mean Corpuscular Hgb 29.7 pg (27.0-32.0); Mean Corpuscular Volume 91.6 fL (81-99); Mean Platelet Vol. 10.3 fl (6.2-12.0); Monocyte# 0.48 X10^3/uL; Monocyte% 6.3 % (0-10); NRBC Flagged by Analyzer 0 % (0-5); Neutrophil # 5.64 X10^3/uL (2.7-7.7); Neutrophil % 73.9 % (47-70); Platelet Count 216 K/mm3 (150-450); RBC Distribution Width CV 12.6 % (11.6-14.6); RBC Distribution Width SD 42.4 fl (35.1-43.9); Red Blood Count 4.88 M/mm3 (4.2-5.4); White Blood Count 7.6 K/mm3 (4.4-11.0)
[2023-12-19 16:03] LABS: Internal QC Validated? YES +Cl - CLEAR BKGD; Pregnancy, Serum, hCG Quali. NEGATIVE Negative
[2023-12-19 16:07] LABS: Alcohol, Blood (Medical)-Serum < 3.0 mg/dL
[2023-12-19 16:19] LABS: Anion Gap 4 (5-15); BUN 7 mg/dL (7-18); BUN/Creat Ratio 9.9 RATIO (10-20); Calcium,Total 8.9 mg/dL (8.5-10.1); Chloride 105 mmol/L (98-107); Creatinine, Serum 0.71 mg/dL (0.55-1.02); EST Glomerular Filtration Rate 100 mL/min (>60); Est Glom Filt Rate - Afr Amer 121 mL/min (>60); Estimated Creatinine Clearance 107.55 ml/min; Glucose 92 mg/dL (74-106); Potassium 3.4 mmol/L (3.5-5.1); Sodium Level 137 mmol/L (136-145); Thyroid Stim Hormone (TSH) 0.979 uIU/mL (0.358-3.740)
[2023-12-19 16:22] LABS: Color, Urine Straw (Yellow); Glucose, Dipstick Normal (Normal); Ketone-Dipstick Negative (Negative); Leukocyte Esterase-Dipstick Negative /ul (Negative); Nitrite-Dipstick Negative (Negative); Occult Blood-Urine Negative /ul (Negative); Protein-Dipstick Negative (Negative); Specific Gravity, Urine 1.005 (1.002-1.030); Urine Bilirubin Dipstick Negative (Negative); Urine Clarity Clear (Clear); Urine Urobilinogen Normal (Normal)
[2023-12-19 16:37] LABS: Bacteria RARE /hpf (None Seen); Squamous Epithelial Cells - UA 5-10 SEEN /hpf (5-10)
[2023-12-19 16:38] LABS: Amphetamine Urine VISTA NEGATIVE (<1000 ng/mL); Barbiturate Urine VISTA NEGATIVE (< 200 ng/mL); Benzodiazepine Urine VISTA NEGATIVE (< 200 ng/mL); Cocaine Urine VISTA NEGATIVE (< 300 ng/mL); Ecstacy Urine VISTA NEGATIVE (< 500 ng/mL); Methadone Urine VISTA NEGATIVE (< 300 ng/mL); PCP Urine VISTA NEGATIVE (< 25 ng/mL); THC Urine VISTA NEGATIVE (< 50 ng/mL); Vista UDS pH Range 7
[2023-12-19] MEDS: Haloperidol Lactate 5 MG/ML Vial IM (19:11)
[2023-12-20 00:37] VITALS: BP 107/70; PULSE 93; RESP 18; O2SAT 95
[2023-12-20 08:00] VITALS: BP 98/72; PULSE 77; RESP 16; O2SAT 97
[2023-12-20 09:22] VITALS: BP 101/78; PULSE 67; RESP 16; TEMP 36.3; O2SAT 98
== END 2023-12-20 09:00 ==
LOC: ED 16:01
PROVIDERS: Emergency Provider Emergency Medicine; Visit Provider Emergency Medicine
DX: F23 Brief psychotic disorder (principal); F22 Delusional disorders; F17.200 Nicotine dependence, unspecified, uncomplicated
CPT/HCPCS: 36415; 80048; 80307; 81001; 82077; 84443; 84703; 85025; 96372; 99284